=== PATIENT | female | born 1955 | race Two or more races ===

== ENCOUNTER 2018-03-12 11:57 | Day surgery (SDC) | payer MEDICARE, BC ==
[2018-03-12] MEDS ORDERED: PROPOFOL 20 ML ×2 (13:29→14:00)
[2018-03-12] MEDS ORDERED: LIDOCAINE 2% (SDV) 5 ML INJ (13:29)
[2018-03-12] MEDS ORDERED: hydrALAzine 20 MG INJ IV (13:30)
[2018-03-12] MEDS ORDERED: ONDANSETRON 4 MG INJ IV (13:30)
[2018-03-12] MEDS ORDERED: LABETALOL HCL 20MG INJ IV (13:30)
== END 2018-03-12 16:12 | disposition home or self-care (01) ==
LOC: GIL 11:57
DX: K44.9 Diaphragmatic hernia without obstruction or gangrene (principal); I10 Essential (primary) hypertension; E78.5 Hyperlipidemia, unspecified
CPT/HCPCS: 43239; 88305; 88312